=== PATIENT | female | born 1985 | race Caucasian/White ===

== ENCOUNTER → 2017-10-14 | Emergency (ER) | payer MEDICAID, OTHER ==
[~2017-10-14] VITALS: Ht 154.9 cm; Wt 65.8 kg
[~2017-10-14] MED LIST: DEXA4TAB2 PO; HYDR-548 PO; HYDROMORPHONE 1 MG/1 ML DISP.SYRIN IV ONE; HYDROMORPHONE INJ 2 MG/ML DISP.SYRIN ONE; IV NS 0.9% 1,000 ML BAG IV ONE; KETOROLAC TROMETHAMINE INJ 30 MG/ML VIAL IV ONE; KETOROLAC TROMETHAMINE INJ 30 MG/ML VIAL ONE; MORPHINE SULFATE INJ 2 MG/ML DISP.SYRIN IV ONE; ONDA4TAB5 PO; ONDANSETRON HCL/PF 4 MG/2 ML VIAL IV ONE; ONDANSETRON HCL/PF 4 MG/2 ML VIAL IVP ONE; ONDANSETRON HCL/PF 4 MG/2 ML VIAL ONE; PROMETHAZINE HCL 25 MG/ML AMPUL IM ONE; PROMETHAZINE HCL 25 MG/ML AMPUL ONE
[2017-10-14 16:03] LABS: BASOPHILS # (AUTO) 0.1 /CMM (0.0-0.2); BASOPHILS % (AUTO) 1.9 % (0.0-2.0); EOSINOPHILS # (AUTO) 0.1 /CMM (0.0-0.7); EOSINOPHILS % (AUTO) 2.1 % (0.0-6.0); HEMATOCRIT 36 % (33-45); HEMOGLOBIN 12.3 g/dL (11.5-14.8); LYMPHOCYTES # (AUTO) 1.8 /CMM (0.8-4.8); MEAN CORPUSCULAR HEMOGLOBIN 30 PG (26.0-33.0); MEAN CORPUSCULAR HGB CONC 35 g/dl (31.0-36.0); MEAN CORPUSCULAR VOLUME 88 fL (82-100); MONOCYTES # (AUTO) 0.4 /CMM (0.1-1.30); MONOCYTES % (AUTO) 6.1 % (2.0-12.0); NEUTROPHILS # (AUTO) 4.4 /CMM (1.8-8.9); NEUTROPHILS % (AUTO) 63.9 % (43.0-81.0); PLATELET COUNT (AUTO) 201 /CMM (150-450); RDW COEFFICIENT OF VARIATION 12.8 (11.5-15.0); RED BLOOD CELL COUNT(AUTO) 4.06 MIL/uL (4.0-5.2); WHITE BLOOD COUNT (AUTO) 6.8 K/uL (4.3-11.0)
[2017-10-14 16:12] LABS: CARBON DIOXIDE 27 mmol/L (21-32); CHLORIDE 104 mmol/L (98-107); GLUCOSE 105 mg/dL (74-106); POTASSIUM 3.9 mmol/L (3.5-5.1); SODIUM SERUM 136 mmol/L (136-145)
[2017-10-14 16:13] LABS: CREATININE 0.7 mg/dL (0.6-1.3); UREA NITROGEN, BLOOD 14 mg/dL (7-18)
[2017-10-14 16:19] LABS: ALANINE AMINOTRANSFERASE 15 U/L (12-78); ALBUMIN 3.8 g/dL (3.4-5.0); ALKALINE PHOSPHATASE 44 U/L (46-116); ASPARTATE AMINOTRANSFERASE 15 U/L (15-37); BILIRUBIN,TOTAL 0.2 mg/dL (0.2-1.0); TOTAL PROTEIN, SERUM 7.1 g/dL (6.4-8.2)
[2017-10-14 16:20] LABS: TROPONIN I < 0.017 ng/mL (0.00-0.056)
[2017-10-14 16:29] LABS: THYROID STIMULATING HORMONE 0.177 uIU/mL (0.358-3.74)
[2017-10-14 16:35] LABS: APPEARANCE,URINE Clear (CLEAR); BILIRUBIN,URINE Negative (NEGATIVE); BLOOD, URINE Trace-intact Ery/uL (NEGATIVE); COLOR,URINE Yellow (YELLOW); KETONES,URINE Negative (NEGATIVE); LEUKOCYTE ESTERASE ,URINE Small (NEGATIVE); NITRITE, URINE Negative (NEGATIVE); PH,URINE 6.5 (5.0-8.0); PROTEIN,URINE Negative (NEGATIVE); UGLUCOSE Negative (NEGATIVE); UROBILINOGEN,URINE 0.2 EU/dL (0.2)
[2017-10-14 16:41] LABS: BACTERIA,URINE None seen /HPF (None Seen); SQUAMOUS EPITHELIAL CELL,UR Few /HPF (None Seen); WBC,URINE 21-50 /HPF (0-3)
--- NOTE | 2017-10-14 17:53 | NUR ---
PT BACK FROM CT
--- NOTE | 2017-10-14 19:40 | NUR ---
RECEIVED REPORT FROM RN, PT C/O PAIN AND NAUSEA. PT GIVEN PHENEGRAN IV, WAITING FOR PAIN MED CHANGE TO DILAUDID. PT STABLE, PLACED ON MONITOR
--- NOTE | 2017-10-14 20:52 | NUR ---
PT MEDICATED FOR PAIN, NOW SLEEPING EASILY AROUSABLE TO VOICE, PT COMPLAINS OF CONTINUED NAUSEA, MD NOTIFIED. DISCUSSED WITH PT IMPORTANCE OF DRINKING WATER AND PASSING PO CHALLENGE BEFORE DISCHARGE GRANTED. PT REFUSING TO DRINK. ABLE TO TAKE ONE SIP WITH HELP OF NURSE.
--- NOTE | 2017-10-14 21:17 | NUR ---
PT ABLE TO TOLERATE PO CHALLENGE, DRANK 240ML WATER. PT STATES "I JUST WANT TO GO HOME", NOTIFIED. VITAL SIGNS ELEVATED
--- NOTE | 2017-10-14 21:30 | NUR ---
Patient discharged to home in stable condition. Written and verbal after care instructions given. Patient verbalizes understanding of instruction. IV REMOVED INTACT. DC TO HOME WITH FRIEND, VSS, PT IN NAD AT THIS TIME. A&O X4, ABLE TO AMBULATE SELF STEADY GAIT. STRICT ER RETURN PROTOCOL GIVEN VERBAL UNDERSTANDING RETURNED. PT UNDERSTANDS TO SEE PMD TANYA AFTER DC FROM HOSP
[2017-10-15 02:37] VITALS: BP 145/86
== END | disposition home or self-care (01) ==
LOC: ER 15:05
DX: G40.909 Epilepsy, unspecified, not intractable, without status epilepticus (principal); R11.2 Nausea with vomiting, unspecified; M54.2 Cervicalgia; G89.29 Other chronic pain; E06.3 Autoimmune thyroiditis; R82.99 Other abnormal findings in urine; F12.10 Cannabis abuse, uncomplicated; M32.9 Systemic lupus erythematosus, unspecified; Z87.442 Personal history of urinary calculi; Z88.0 Allergy status to penicillin; Z88.8 Allergy status to other drugs, medicaments and biological substances
CPT/HCPCS: 36415; 70490-TC; 71010-TC; 80048-TC; 80076-TC; 81000-TC; 84439-TC; 84443-TC; 84484-TC; 84703-TC; 85025-TC; 85652-TC; 87086-TC; A4606; J1170; J1885; J2405; J2550; J7030; Z7610